=== PATIENT | male | born 1945 ===

== ENCOUNTER 2025-06-24 10:10 | Outpatient (CLI) | payer MEDICARE, BC ==
[2025-06-24 11:32] LABS: Estimated GFR - POC 77.0
== END 2025-06-24 10:11 | disposition home or self-care (01) ==
LOC: CSHCT 10:10
PROVIDERS: ATTEND Internal Medicine Critical Care Medicine
DX: R91.8 Other nonspecific abnormal finding of lung field (principal)
CPT/HCPCS: 36415; 71260; 82565